=== PATIENT | male | born 1955 | race Caucasian/White ===

== ENCOUNTER 2016-12-02 10:34 | Day surgery (SDC) | payer MEDICAID ==
--- NOTE | 2016-12-02 22:14 | GPN ---
DATE OF PROCEDURE: 12/02/2016 PROCEDURE PERFORMED: Flexible sigmoidoscopy and biopsy. INDICATION: History of left-sided ulcerative colitis. PREOPERATIVE DIAGNOSIS: Rule out ulcerative colitis, surveillance for dysplasia, if the patient shannon l allow me take biopsies. POSTOPERATIVE DIAGNOSES: Mild erythema and vascular pattern change in the rectum, sigmoid colon, an d descending colon. The transverse colon appeared more normal, but there was stool in it, that coul d not visualize well. There were no active ulcerations, erosions or obvious colitis. These vascula r changes could be consistent with quiescent colitis. Shon is very hesitant to have me perform bio psies as he thinks he has flares related to biopsies. He did allow me take 6 biopsies from the sigm oid and rectum. DESCRIPTION OF PROCEDURE: Retroflex examination was performed. The endoscope was then withdrawn co nfirming the above findings. The patient tolerated procedure well chest recovery in satisfactory co ndition. IMPRESSION: Mild erythema and vascular pattern changes in the rectum, sigmoid colon and the distal descending colon. Query active inflammation versus quiescent changes, status post a few biopsies. RECOMMENDATIONS: 1. Follow up pathology. 2. If pathology is normal without active colitis, I would not change his medications. 3. If the patient has active colitis, then I would check Humira antibodies and drug levels to see i f we can continue to use this. If the antibody level is high and the drug level is low, then we migh t want to change biologics. He has been on Remicade in the past, so choosing Cimzia or Simponi migh t be the next option. 4. Follow up in the office as scheduled. 5. Further recommendations to follow results of above. 6. Follow up primary care physician as scheduled. Thank you for allowing me to participate in patient's healthcare. Do not hesitate to call me with an y questions. Copy requested to: Rajan Decker PA-C /[id number]/MODL
== END 2016-12-02 12:47 | disposition home or self-care (01) ==
LOC: FSGY 10:34
PROVIDERS: ATTEND Internal Medicine Gastroenterology
PROC: 0DBN8ZX Excision of Sigmoid Colon, Via Natural or Artificial Opening Endoscopic, Diagnostic (ICD-10-PCS; principal; 2016-12-02 12:15)
PROC: 0DBP8ZX Excision of Rectum, Via Natural or Artificial Opening Endoscopic, Diagnostic (ICD-10-PCS; principal; 2016-12-02 12:15)
DX: K51.90 Ulcerative colitis, unspecified, without complications (principal); E03.9 Hypothyroidism, unspecified; Z79.52 Long term (current) use of systemic steroids; Z79.899 Other long term (current) drug therapy